=== PATIENT | female | born 1990 | race Caucasian/White ===

== ENCOUNTER 2017-09-23 07:44 | Emergency (ER) | payer BC ==
[~2017-09-23] VITALS: Ht 157.5 cm; Wt 54.4 kg
[2017-09-23] MEDS ORDERED: DEXAMETHASONE SOD PHOS 10 MG/1 ML VIAL INJ ONE (08:15)
[2017-09-23] MEDS ORDERED: ALBUTEROL/IPRATROPIUM 3 ML NEB NEB ONE (08:15)
== END 2017-09-23 08:32 | disposition home or self-care (01) ==
LOC: FSED 07:44
DX: R05 Cough (principal); J20.9 Acute bronchitis, unspecified
CPT/HCPCS: 99282; J1100